=== PATIENT | female | born 1990 ===

== ENCOUNTER 2018-06-16 01:49 | Emergency (ER) | payer OTHER, BC ==
[2018-06-16 02:11] VITALS: RESP 16
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
[2018-06-16 04:53] VITALS: BP 122/84; PULSE 82; TEMP 98.2; O2SAT 99
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
== END 2018-06-16 04:10 | disposition home or self-care (01) ==
LOC: H.ER 01:49
DX: S40.022A Contusion of left upper arm, initial encounter (principal); V43.52XA Car driver injured in collision with other type car in traffic accident, initial encounter

== ENCOUNTER 2018-08-06 01:17 | Emergency (ER) | payer BC, OTHER ==
[2018-08-06 01:25] VITALS: BMI 36.3
[2018-08-06 01:28] VITALS: BP 142/92; PULSE 98; RESP 18; O2SAT 99
--- NOTE | 2018-08-06 02:06 | ED PDOC ---
HPI: CCC, URI, Sore Throat Time Seen by Provider: 08/06/18 01:39 Chief Complaint (Nursing): ENT Problem Chief Complaint (Provider): Left Ear Pain, Throat Pain History Per: Patient History/Exam Limitations: no limitations Have you had recent travel within the past 21 days to any of the following countries: [place], [place], [place] or [place]?: No Onset/Duration Of Symptoms: Days (x2) Location Of Pain: Ear(s) (left), Throat Sick Contacts (Context): None Additional Complaint(s): Patient is a 28 year old female who presents to the ED for evaluation of a dry cough, nasal congestion, and voice hoarseness since waking up yesterday. Patient reports that last night she developed left ear pain and throat pain that has been worsening. 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 Denies recent travel or sick contacts. Denies fever, N/V/D, abdominal pain, chest pain, SOB, dysphagia, rash, urinary symptoms. PMD: [facility] LMP: 07/22/18 Past Medical History Reviewed: Historical Data, Nursing Documentation, Vital Signs Vital Signs: Last Vital Signs Temp 98.0 F 08/06/18 01:25 Pulse 98 H 08/06/18 01:25 Resp 18 08/06/18 01:25 BP 142/92 H 08/06/18 01:25 Pulse Ox 99 08/06/18 01:25 - Medical History PMH: No Chronic Diseases - Surgical History Surgical History: No Surg Hx - Family History Family History: States: Unknown Family Hx - Social History Current smoker - smoking cessation education provided: No Ex-Smoker (has not smoked in the last 12 months): No - Home Medications Home Medications: Ambulatory Orders Medication Instructions Recorded RX: Albuterol HFA [Ventolin HFA 90 2 puff IH [id number] PRN #60 puff 10/04/16 mcg/actuation (8 g)] RX: Azithromycin [Z-Marquis] 250 mg PO DAILY #6 tab 10/04/16 RX: Azithromycin [Zithromax] 250 mg PO DAILY #4 tab 10/04/16 Cyclobenzaprine [Cyclobenzaprine 10 mg PO BID #15 tab 06/16/18 HCl] RX: Ibuprofen [Motrin Tab] 600 mg PO Q6 #30 tab 06/16/18 RX: Lidocaine 1 each TP DAILY #10 adh..patch 06/16/18 Acetaminophen [Acetaminophen 8 650 mg PO Q8 PRN #21 tablet.er 08/06/18 Hour] RX: Amoxicillin 875 mg PO BID #14 tab 08/06/18 RX: Naproxen 500 mg PO BID PRN #20 tab 08/06/18 - Allergies Allergies/Adverse Reactions: Allergies Allergy/AdvReac Type Severity Reaction Status Date / Time No Known Allergies Allergy Verified 08/06/18 01:24 Review of Systems ROS Statement: Except As Marked, All Systems Reviewed And Found Negative Constitutional: Negative for: Fever ENT: Positive for: Ear Pain (left), Nose Congestion, Throat Pain Respiratory: Positive for: Cough Skin: Negative for: Rash Physical Exam - Reviewed Nursing Documentation Reviewed: Yes Vital Signs Reviewed: Yes - Physical Exam Comments: GENERALIZED APPEARANCE: Patient is awake, alert, oriented x3; resting comfortably, in no distress. SKIN: Warm, dry; (-) cyanosis; (-) rash. ENMT: TMs: (+)bulging and erythema to L TM, (-) bulging or erythema of R TM. Pharynx: bilateral tonsillar erythema and pharyngeal erythema (-) exudate (-) deviation of uvula. Mucous membranes moist. Airway widely patent: (-) stridor. (+) voice hoarseness, (-) drooling (-) tongue elevation (-) jaw or neck swelling. Nares patent, (-) rhinorrhea. NECK: Supple, FROM(-) tenderness, (-) stiffness (-) lymphadenopathy. CHEST AND RESPIRATORY: (-) rales, (-) rhonchi, (-) wheezes; breath sounds equal bilaterally. Respirations even and nonlabored. HEART AND CARDIOVASCULAR: (-) irregularity ABDOMEN AND GI: Soft; (-) tenderness. EXTREMITIES: (-) deformity NEURO AND PSYCH: Mental status as above. Gait: steady. Speech: clear. (-) facial asymmetry (-) aphasia - ECG O2 Sat by Pulse Oximetry: 99 (RA) Pulse Ox Interpretation: Normal Medical Decision Making Medical Decision Making: Initial Impression: otitis media, pharyngitis, cough Plan: -Rapid Strep -Throat culture -Amoxicillin 500mg PO -Toradol 30mg IM -Upreg 0240 Upreg: negative Rapid Strep: (-) On re-evaluation, patient reports improvement of symptoms. Patient remains AAOx3, in no acute distress. Vitals stable. Lab/Diagnostic results d/w the patient in great detail. Diagnosis of otitis media, pharyngitis, cough d/w the patient. Based on history, exam and diagnostic results, plan will be for outpatient follow up with PMD/ENT. Patient instructed to follow-up with pmd / referral provided / the clinic in 1- 2 days without fail. Advised to take medication as prescribed. Return to the emergency room at any time for any new or worsening symptoms. Patient states she fully agrees with and understands discharge instructions. States that she agrees with the plan and disposition. Verbalized and repeated discharge instructions and plan. I have given the patient opportunity to ask any additional questions. Disposition - Clinical Impression Clinical Impression: Left ear pain, Otitis media, Cough, Pharyngitis - Patient ED Disposition Is Patient to be Admitted: No Counseled Patient/Family Regarding: Studies Performed, Diagnosis, Need For Followup, Rx Given - Disposition Referrals: [facility] [Family Provider] - Clayton Regalado MD [Staff Provider] - Disposition: Routine/Home Disposition Time: 02:40 Condition: STABLE Additional Instructions: The emergency medical care you received today was directed at your acute symptoms. If you were prescribed any medication, please fill it and take as directed. It may take several days for your symptoms to resolve. Return to the Emergency Department if your symptoms worsen, do not improve, or if you have any other problems. Please contact your doctor in 2 days for re-evaluation and follow up / or call one of the physicians/clinics you have been referred to that are listed on the Patient Visit Information form that is included in your discharge packet. Bring any paperwork you were given at discharge with you along with any medications you are taking to your follow up visit. Our treatment cannot replace ongoing medical care by a primary care provider (PCP) outside of the emergency department. Prescriptions: Acetaminophen [Acetaminophen 8 Hour] 650 mg PO Q8 PRN #21 tablet.er PRN Reason: Pain, Moderate (4-7) RX: Amoxicillin 875 mg PO BID #14 tab RX: Naproxen 500 mg PO BID PRN #20 tab PRN Reason: Pain, Moderate (4-7) Instructions: Ear Infections (Otitis Media), Cough in Adults, Sore Throat, Adult (DC) Forms: [facility] (Yakut) Print Language: KHMER - POA Present On Arrival: None Results - Lab Results Lab Results: 08/06/18 02:10 Grp A Beta Strep Ag Negative
[2018-08-06 03:10] VITALS: TEMP 98
== END 2018-08-06 02:47 | disposition home or self-care (01) ==
LOC: H.ER 01:17
DX: H66.92 Otitis media, unspecified, left ear (principal); R05 Cough; J02.9 Acute pharyngitis, unspecified
CPT/HCPCS: 81025; 87070; 87430; 96372; 99282; J1885

== ENCOUNTER 2018-11-14 19:48 | Emergency (ER) | payer BC, OTHER ==
[2018-11-14 19:49] VITALS: BMI 36.3
[2018-11-14 20:35] VITALS: TEMP 98.5
--- NOTE | 2018-11-14 21:58 | ED PDOC ---
Lower Extremity Pain/Injury Time Seen by Provider: 11/14/18 20:38 Chief Complaint (Nursing): Lower Extremity Problem/Injury Chief Complaint (Provider): Lower Extremity Problem/Injury History Per: Patient History/Exam Limitations: no limitations Onset/Duration Of Symptoms: Days (1) Additional Complaint(s): 28 y/o female presents to the ED due to right knee pain after falling yesterday. 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 She reports she has been having trouble bending her knee and states is swollen. Patient took Tylenol about 2pm today and states she is able to bare weight on it. Patient denies numbness or any tingling. PMD: none provided Past Medical History Reviewed: Historical Data, Nursing Documentation, Vital Signs Vital Signs: Last Vital Signs Temp 98.5 F 11/14/18 20:34 Pulse 65 11/14/18 20:34 Resp 16 11/14/18 20:34 BP 158/102 H 11/14/18 20:34 Pulse Ox 98 11/14/18 20:34 - Medical History PMH: No Chronic Diseases - Family History Family History: States: Unknown Family Hx - Immunization History Hx Tetanus Toxoid Vaccination: No Hx Influenza Vaccination: Yes Hx Pneumococcal Vaccination: No - Home Medications Home Medications: Ambulatory Orders Medication Instructions Recorded Albuterol HFA [Ventolin HFA 90 2 puff IH [id number] PRN #60 puff 10/04/16 mcg/actuation (8 g)] Azithromycin [Z-Marquis] 250 mg PO DAILY #6 tab 10/04/16 Azithromycin [Zithromax] 250 mg PO DAILY #4 tab 10/04/16 Cyclobenzaprine [Cyclobenzaprine 10 mg PO BID #15 tab 06/16/18 HCl] Ibuprofen [Motrin Tab] 600 mg PO Q6 #30 tab 06/16/18 Lidocaine 1 each TP DAILY #10 adh..patch 06/16/18 Acetaminophen [Acetaminophen 8 650 mg PO Q8 PRN #21 tablet.er 08/06/18 Hour] Amoxicillin 875 mg PO BID #14 tab 08/06/18 Naproxen 500 mg PO BID PRN #20 tab 08/06/18 Ibuprofen [Motrin Tab] 800 mg PO Q6 PRN 7 Days tab 11/14/18 - Allergies Allergies/Adverse Reactions: Allergies Allergy/AdvReac Type Severity Reaction Status Date / Time No Known Allergies Allergy Verified 11/14/18 20:34 Review of Systems ROS Statement: Except As Marked, All Systems Reviewed And Found Negative Musculoskeletal: Positive for: Other (knee pain) Neurological: Negative for: Numbness Physical Exam - Reviewed Nursing Documentation Reviewed: Yes Vital Signs Reviewed: Yes - Physical Exam Appears: Positive for: No Acute Distress Extremity: Positive for: Normal ROM (flex and extension right hip, knee, and ankle. DP 1+.), Tenderness (to palpatation medial and lateral knee. No patellar tenderness.), Capillary Refill (less than 2 seconds), Other (no ecchymosis or erythema on right knee.). Negative for: Swelling Neurological/Psych: Positive for: Awake, Alert, Oriented (x3) - ECG O2 Sat by Pulse Oximetry: 98 Medical Decision Making Medical Decision Making: Time:2058 Initial Impression: Initial Plan: -Urine -Right Knee x-ray -Ibuprofen 600mg PO x1 Right knee x-ray read by me: no acute fracture or dislocation. Patient's re-evaluated and pain has improved mildly. BENITO bandage applied to Right knee. Stable for d/c home with return instructions given and advised to rest, ice and elevate leg and continue taking Ibuprofen as needed. Patient demonstrated understanding. Scribe Attestation: Documented by Zaida Jennings, acting as a scribe for Sheri Stevens. Provider Scribe Attestation: All medical record entries made by the Scribe were at my direction and personally dictated by me. I have reviewed the chart and agree that the record accurately reflects my personal performance of the history, physical exam, medical decision making, and the department course for this patient. I have also personally directed, reviewed, and agree with the discharge instructions and disposition. Disposition - Clinical Impression Clinical Impression: Knee pain - Patient ED Disposition Is Patient to be Admitted: No Counseled Patient/Family Regarding: Studies Performed, Diagnosis, Need For Followup - Disposition Referrals: [facility] Godoy [Family Provider] - Disposition: Routine/Home Disposition Time: 22:11 Condition: STABLE Additional Instructions: Take Ibuprofen or Tylenol for pain. Rest and elevate knee. Use BENITO bandage for comfort. Follow up with your primary doctor or return to ER if your symptoms worsen. Prescriptions: Ibuprofen [Motrin Tab] 800 mg PO Q6 PRN 7 Days tab PRN Reason: Pain, Moderate (4-7) Instructions: Knee Pain (DC) Forms: [facility] (Portuguese) Print Language: YAKUT
[2018-11-14 22:10] VITALS: BP 125/89; PULSE 70; RESP 18
[2018-11-15 00:46] VITALS: O2SAT 98
--- NOTE | 2018-11-15 13:11 | RAD ---
Date of service: 11/14/2018 PROCEDURE: Right Knee Radiographs. HISTORY: fall onto R knee yesterday, + pain COMPARISON: None. TECHNIQUE: 2 views obtained. FINDINGS: BONES: Normal. No fracture. JOINTS: Normal. No osteoarthritis. JOINT EFFUSION: None. OTHER FINDINGS: None. IMPRESSION: No acute findings related to/ accounting for the clinical presentation. Concordant results with the preliminary interpretation rendered by the emergency department physician procedure.
== END 2018-11-14 22:11 | disposition home or self-care (01) ==
LOC: H.ER 19:48
DX: M25.561 Pain in right knee (principal); W18.39XA Other fall on same level, initial encounter